=== PATIENT | female | born 1985 | race Caucasian/White ===

== ENCOUNTER 2025-01-23 18:19 | Emergency (ER) | payer OTHER, SELFPAY ==
[2025-01-23 18:22] VITALS: BP 139/92
--- NOTE | 2025-01-23 19:43 | ED.GENMED ---
History of Present Illness
General
Chief Complaint: DVT/Possible Blood Clot
Source: patient
Exam Limitations: none
Time Seen by Provider: 01/23/25 19:36
Nursing documentation reviewed up to this point in time: agreed with
History of Present Illness
History of Present Illness:
39-year-old female with no clinically significant past medical history presents for a tender lump right lower calf. She states she noticed it the past 4 days when she was shaving but today it became mildly tender. She went to urgent care was sent
here to rule out DVT. Patient states she is also had diarrhea after eating for the past 2 weeks, with mild pain in the left upper quadrant. She denies fever or chills. She denies N/V. She denies chest pain or trouble breathing.
Past History
Past History
ED Past Medical History: None
Social History
Tobacco: Non-smoker
Personal:
Review of Systems
Review of Systems
Allergies reviewed?: Yes
All Other Systems: ROS reviewed and negative except as documented in HPI and ROS
Phy Exam
Physical Exam
Physical Exam:
GENERAL: No acute distress. A&Ox3.
CONSTITUTIONAL: Afebrile.
EYES: clear, conjunctivae normal
ENMT: moist mucus membranes, Pharynx nl
RESPIRATORY: Regular respirations, nonlabored, lungs clear.
CARDIOVASCULAR: Regular rate and rhythm, no murmurs, no rubs.
GI: Soft, nontender, normal BS
MUSCULOSKELETAL: Distal left calf with dime sized area of mobile mass, mildly tender, no redness or swelling. Distal neurovascular intact. Moves with ease. Well perfused.
SKIN: Warm, dry, pink
PSYCH: Normal mood and affect. Well kept, interactive and appropriate
NEUROLOGIC: Awake, alert and oriented. No focal neurological deficits
Course
Orders/Labs/Results
Orders:
Orders
01/23/25 18:22
US Legs, Right [US Periph Venous LOWER Ext RT] Urgent
Comment:
Reason For Exam: swelling
01/23/25 19:43
Test Result ONCE
01/23/25 19:48
Complete Blood Count/With Diff Urgent
Comprehensive Metabolic Panel Urgent
HCG, Serum Qualitative Screen Urgent
Lipase Urgent
Abnormal Lab Results
01/23/25
19:48
RBC 4.06 L 10^6/uL
(4.20-5.40)
MCH 32.3 H pg
(27.0-31.0)
Alkaline Phosphatase 33 L U/L
(38-126)
01/23/25 19:48
01/23/25 19:48
Vital Signs
Initial and Last Documented VS:
Initial Vital Signs
Temp Pulse Resp BP Pulse Ox
98.0 F 89 18 139/92 100
01/23/25 18:22 01/23/25 18:22 01/23/25 18:22 01/23/25 18:22 01/23/25 18:22
Last Documented Vital Signs
Temp Pulse Resp BP Pulse Ox
98.0 F 96 18 139/92 100
01/23/25 18:22 01/23/25 21:25 01/23/25 21:25 01/23/25 18:22 01/23/25 21:25
MDM/Problems Addressed
Differential Diagnosis Includes:
DVT, fatty lipoma, cyst
Pancreatitis, constipation, diverticulitis
MDM/Problems Addressed:
39-year-old female with no clinically significant past medical history presents for a tender lump right lower calf. She states she noticed it the past 4 days when she was shaving but today it became mildly tender. She went to urgent care was sent
here to rule out DVT. Patient states she is also had diarrhea after eating for the past 2 weeks, with mild pain in the left upper quadrant. She denies fever or chills. She denies N/V. She denies chest pain or trouble breathing.
Patient is abdominal pain is intermittent and minimal over the past 2 weeks. Her abdomen is benign now, I will check her lipase since her pain is usually in the left upper quadrant
CBC normal
CMP normal
Lipase normal
hCG negative
No indication for further imaging as patient is abdomen is benign
Ultrasound showing no DVT. Patient reassured and is stable for discharge.
*Pulse Oximetry
SaO2: 100
Oxygen Mode of Delivery: Room air
Patient hypoxic: no
*Critical Care Note
Total Time (30-74mins, 75-104mins- exclusive of procedures): Not Applicable
ED Attending Note
-
Portions of this chart may have been created with voice recognition software.� Occasional wrong word or��sound alike� substitutions may have occurred due to the inherent limitations of voice recognition software.
Discharge Plan
Departure
Patient Disposition: Home (Routine Discharge)
Date of Disposition: 01/23/25
Time of Disposition: 21:19
Patient with high blood pressure during this ER visit?: No
Condition: Good
Discharge Problem:
Right calf pain, Abdominal pain
Prescriptions:
No Action
Loratadine
1 tab PO DAILY
hydrocodone-acetaminophen [Vicodin] 1 EACH tablet
1 ea PO Q6H PRN (Reason: pain) Qty: 15 0RF
Referrals:
UNKNOWN - PT DOES,NOT KNOW [Family Provider]
Activity Restrictions/Additional Instructions:
As we discussed, nothing worrisome in your workup here today. Specifically there is no deep vein clot on the ultrasound
Your blood work is all normal
Interventions
Interventions:
*Risk Screen - Suicide Last Done: 01/23/25 18:22
*General Assessment Last Done: 01/23/25 18:22
*Neglect/Abuse Screening Last Done: 01/23/25 18:22
*ED- Fall Risk Assessment Last Done: 01/23/25 20:23
*ED COVID-19 Vaccine History Last Done: 01/23/25 18:22
*Nursing Disposition Last Done: 01/23/25 21:29
ED- Cardiac Assessment Last Done: 01/23/25 19:59
ED- Pulmonary Assessment Last Done: 01/23/25 19:59
ED-Peripheral Vascular Assessment Last Done: 01/23/25 19:59
ED-Skin Assessment Last Done: 01/23/25 19:59
Discharge Date and Time
Discharge Date/Time: 01/23/25 21:30
Print Language: SETSWANA
[2025-01-23 19:57] LABS: Hematocrit 38.4 % (37.0-47.0); Hemoglobin 13.1 g/dL (12.0-16.0); Mean Corp Hgb Conc. 34.1 g/dL (33.0-37.0); Mean Corpuscular Volume 94.6 fL (81.0-99.0); Nucleated Red Blood Cells % 0 %; Platelet Count 283 10^3/uL (130-400); Red Cell Dist. Width 12.4 % (11.5-14.5)
[2025-01-23 20:19] LABS: HCG, Serum Qualitative Screen Negative
[2025-01-23 20:22] LABS: ALT (SGPT) 21 U/L (0-35); AST (SGOT) 20 U/L (14-36); Albumin 4.0 g/dl (3.5-5.0); Alkaline Phosphatase 33 U/L (38-126); Blood Urea Nitrogen 9 mg/dl (7-17); Calcium 9.1 mg/dl (8.4-10.2); Carbon Dioxide 26 mmol/L (22-30); Chloride 107 mmol/L (98-107); Glucose 94 mg/dl (70-99); Lipase 82 U/L (23-300); Potassium 3.9 mmol/L (3.5-5.1); Sodium 138 mmol/L (135-145); Total Protein 7.0 g/dl (6.3-8.2); eGFR > 60.00
== END 2025-01-23 21:30 | disposition home or self-care (01) ==
LOC: EMR 18:19
PROVIDERS: Registered Nurse; EMERGENCY PHYSICIAN Emergency Medicine
DX: M79.661 Pain in right lower leg (principal); R10.12 Left upper quadrant pain
CPT/HCPCS: 99284; 80053; 83690; 84703; 85025; 93971

== ENCOUNTER 2025-03-17 19:11 | Emergency (ER) | payer OTHER, SELFPAY ==
[2025-03-17 19:18] VITALS: BP 130/91
[2025-03-17 19:36] LABS: Urine Character Clear (Clear)
[2025-03-17 19:37] LABS: Hematocrit 40.0 % (37.0-47.0); Hemoglobin 13.6 g/dL (12.0-16.0); Mean Corp Hgb Conc. 34.0 g/dL (33.0-37.0); Mean Corpuscular Volume 92.2 fL (81.0-99.0); Nucleated Red Blood Cells % 0 %; Platelet Count 310 10^3/uL (130-400); Red Cell Dist. Width 12.2 % (11.5-14.5)
[2025-03-17 19:41] LABS: Urine Squamous Cell >30 /LPF (Few)
[2025-03-17 19:49] LABS: HCG, Serum Qualitative Screen Negative
[2025-03-17 19:54] LABS: ALT (SGPT) 15 U/L (0-35); AST (SGOT) 19 U/L (14-36); Albumin 4.4 g/dl (3.5-5.0); Alkaline Phosphatase 35 U/L (38-126); Blood Urea Nitrogen 9 mg/dl (7-17); Calcium 9.1 mg/dl (8.4-10.2); Carbon Dioxide 29 mmol/L (22-30); Chloride 107 mmol/L (98-107); Glucose 84 mg/dl (70-99); Lipase 92 U/L (23-300); Potassium 3.8 mmol/L (3.5-5.1); Sodium 140 mmol/L (135-145); Total Protein 7.3 g/dl (6.3-8.2); eGFR > 60.00
[2025-03-17 20:45] VITALS: BMI 20.9
[2025-03-17] MEDS: TORADOL 15 MG IV (22:07)
[2025-03-17] MEDS: NSS 1000 IV (22:07)
[2025-03-17 22:08] VITALS: BP 103/70
[2025-03-18 00:09] VITALS: BP 116/81
--- NOTE | 2025-03-18 00:43 | ED.GENMED ---
History of Present Illness
General
Chief Complaint: Flank Pain
Time Seen by Provider: 03/17/25 21:37
History of Present Illness
History of Present Illness:
see MDM
Past History
Past History
ED Past Medical History: None
Social History
Tobacco: Non-smoker
Personal:
Phy Exam
Physical Exam
Physical Exam:
see MDM
Course
Orders/Labs/Results
Orders:
Orders
03/17/25 19:21
IV Insert/Care/Rem.- Treatment PRN
03/17/25 19:22
Test Result ONCE
03/17/25 19:24
Complete Blood Count/With Diff Urgent
Comprehensive Metabolic Panel Urgent
HCG, Serum Qualitative Screen Urgent
Comment: Notify provider if positive test present
Lipase Urgent
Monotest Urgent
Comment: ADD ON
Urinalysis Reflex To Culture Urgent
Date Specimen was Collected: 03/17/25
Time Specimen was Collected: 19:22
Urine Microscopic Reflex Cult Urgent
Urine Culture Urgent
CRYS Source: U
Specimen Description:
Date Specimen was Collected: 03/17/25
Time Specimen was Collected: 19:22
03/17/25 21:59
0.9% Sodium Chloride 1000 ml [Nss] 1,000 ml IV BOLUS
Ketorolac [Toradol] 15 mg IV NOW STA
03/17/25 22:00
Add On- LAB Urgent
Tests Added?: mono
CT Abd/pel Without Iv Or Oral Urgent
Comment:
Reason For Exam: L back pain, micro hematuria
Abnormal Lab Results
03/17/25
19:24
MCH 31.3 H pg
(27.0-31.0)
Alkaline Phosphatase 35 L U/L
(38-126)
Ur Occult Blood Reflex 2+ A
(Negative)
Urine RBC 3-6 A /HPF
(0-2)
Urine Bacteria (Reflex) Many A
(Negative)
Urine Albumin (Reflex) 1+ A
(Neg - Trace)
03/17/25 19:24
03/17/25 19:24
Vital Signs
Initial and Last Documented VS:
Initial Vital Signs
Temp Pulse Resp BP Pulse Ox
36.8 C 85 19 130/91 99
03/17/25 19:18 03/17/25 19:18 03/17/25 19:18 03/17/25 19:18 03/17/25 19:18
Last Documented Vital Signs
Temp Pulse Resp BP Pulse Ox
36.7 C 74 15 116/81 98
03/18/25 00:09 03/18/25 00:09 03/18/25 00:09 03/18/25 00:09 03/18/25 00:09
MDM/Problems Addressed
Differential Diagnosis Includes:
see MDM
MDM/Problems Addressed:
Note:
CHIEF COMPLAINT(S)
Left-sided abdominal pain and diarrhea.
HISTORY OF PRESENT ILLNESS
The patient,39 y/o a female, presents with complaints of left-sided abdominal pain that began 2 weeks ago. The patient describes the pain as initially intense,for about 20 min and then she had BM which was very large.
sice then, pt has been having episodes of L upper abd pain to L back that is sometimes intense. she took miralax last week for a few days once a day and then had softer stools but was still getting the pain
The patient reports that the abdominal pain exacerbates after eating, with particular mention of a meal consisting of soup tonight , after which she experienced immediate sharp pain and diarrhea. She mentions that the pain has not been as severe as
initially but remains persistent and troubling, exacerbating anxiety about eating due to anticipated discomfort.
The patient has a past history of similar abdominal pain episodes over the years and underwent evaluations previously, suspecting kidney stones, which were ruled out. During the previous episodes, imaging suggested significant stool burden,
indicating possible constipation, though managed conservatively.
The patient denies current significant nausea or vomiting but mentions mild nausea. There is no noted blood in her urine or feces. She is not currently on her menstrual cycle but notes that she ceases oral contraceptive pills on Sundays and
typically resumes contraception a few days later.
no rectal bleeding
no fever
no vomiting
never saw GI
PAST MEDICAL AND SURIGICAL HISTORY
History of prior abdominal pain episodes evaluated for kidney stones, ruled out. Previous abdominal imaging indicating stool burden.
REVIEW OF SYSTEMS
- Gastrointestinal: Complains of severe constipation followed by diarrhea, associated with sharp, left-sided abdominal pain exacerbated by meals.
- Neurological: Denies significant nausea, but reports mild nausea.
- Reproductive: Not currently menstruating. Uses oral contraceptive pills.
PHYSICAL EXAM
GENERAL: Alert , in no apparent distress
EYE: pupils equal and reactive
NECK: Supple
ENT: o/p clr, mmm.
CARDIAC: Regular rate and rhythm .
LUNGS: Clear breath sounds bilaterally, no acute respiratory distress, no wheezes/rales/rhonchi
ABDOMEN: Soft, without focal tenderness, no r/g, no cvat, normal bowel sounds
NEUROLOGICAL: Alert and oriented, no focal neuro deficits
SKIN: Warm and dry, skin intact.
MUSCULOSKELETAL: No edema, well perfused. neg michelle's sign
PSYCH: Normal and appropriate interaction.
Nursing notes reviewed and vital signs reviewed.
PROBLEM LIST
Acute Problems:
- Left-sided abdominal pain
- Diarrhea
PLAN
- Conduct abdominal imaging to assess for possible underlying causes. Consideration for imaging with or without contrast.
- Monitor for ongoing symptoms and adjust bowel regimen as needed.
DIFFERENTIAL DIAGNOSIS
The Differential Diagnosis includes, in no particular order and is not limited to:
1. Abdominal bloating.
2. Gastrointestinal blockage.
3. Inflammatory bowel disease.
4. Gallstones.
5. Diverticulitis.
6. Bowel irregularities.
7. Irritable bowel syndrome.
8. Gastroenteritis.
9. Colon inflammation.
10. Constipation complications.
CARE-UPDATE
03/17/25 - 23:58
pain is improved after toradol. labs reassuring, contaminated urine.
normal wbc
ct shows L renal stone but no ureteral stones. kidney stone and ovarian cyst; other abdominal organs appear normal. Consideration for IBS diagnosis requires further testing including colonoscopy and other testing as outpatient.
A new treatment plan involves commencing pepcid twice daily for gastric irritation and bentyl for bowel-related pain as needed every eight hours. Patient advised to maintain a high fiber diet, utilize stool softeners like Metamucil or MiraLax, and
consider dietary logs to identify triggers. Referral to a event security officer for further investigation may be pursued externally due to local scheduling delays.
*Pulse Oximetry
SaO2: 98
Oxygen Mode of Delivery: Room air
Patient hypoxic: no (98)
*Critical Care Note
Total Time (30-74mins, 75-104mins- exclusive of procedures): Not Applicable
ED Attending Note
-
Portions of this chart may have been created with voice recognition software.� Occasional wrong word or��sound alike� substitutions may have occurred due to the inherent limitations of voice recognition software.
Discharge Plan
Departure
Patient Disposition: Home (Routine Discharge)
Date of Disposition: 03/18/25
Time of Disposition: 00:03
Patient with high blood pressure during this ER visit?: No
Condition: Fair
Discharge Problem:
Constipation, Abdominal pain
Instructions: Abdominal pain in adults - ED (DC), Constipation in adults - ED (DC)
Prescriptions:
New
famotidine [Pepcid] 20 mg tablet
20 mg PO BID Qty: 20 0RF
dicyclomine 20 mg tablet
20 mg PO QID PRN (Reason: ABDOMINAL PAIN) Qty: 20 0RF
No Action
Loratadine
1 tab PO DAILY
hydrocodone-acetaminophen [Vicodin] 1 EACH tablet
1 ea PO Q6H PRN (Reason: pain) Qty: 15 0RF
Referrals:
Costa Osuna MD [Active, Gastroenterology] - Follow up in 1 week
Mari Montero DO [Family Provider, Family Practice]
Activity Restrictions/Additional Instructions:
YOU MAY HAVE SOME CONSTIPATION RELATED PAIN, YOU COULD HAVE IRRITABLE BOWEL BUT YOU NEED GI TO DIAGNOSE THAT (BY EXCLUSION)
TRY METAMUCIL DAILY TO SOFTEN STOOL
YOU CAN USE MIRALAX NEEDED FOR 2-3 DAYS IN A ROW TO EMPTY YOU OUT
FOR PAIN TRY BENTYL 20 MG 3 TIMES ADAY NEEDED FOR SPASMS
TRY TO KEEP A FOOD LOG AT WHAT IS MAKING YOU HAVE MORE PAIN WHEN YOU EAT
YOU MAY NEED TO ALSO TRY PEPCID IF YOU ARE GETTING STOMACH PAIN AFTER EATING
20 MG TWICE A DAY
RETURN FOR ANY CONCERNS
Interventions
Interventions:
*Risk Screen - Suicide Last Done: 03/17/25 19:18
*General Assessment Last Done: 03/17/25 19:18
*Neglect/Abuse Screening Last Done: 03/17/25 19:18
*ED- Fall Risk Assessment Last Done: 03/17/25 20:45
*ED COVID-19 Vaccine History Last Done: 03/17/25 20:45
*ED Influenza Vaccine History Last Done: 03/17/25 20:45
*Nursing Disposition Last Done: 03/18/25 00:09
HY-Qncotm-Tnkrgbbgpt Assessment Last Done: 03/17/25 20:46
ED-Female Genitourinary Assessment Last Done: 03/17/25 20:46
Discharge Date and Time
Discharge Date/Time: 03/18/25 00:11
Print Language: HUNGARIAN
== END 2025-03-18 00:11 | disposition home or self-care (01) ==
LOC: EMR 19:11
PROVIDERS: Student in an Organized Health Care Education/Training Program; EMERGENCY PHYSICIAN Emergency Medicine; FAMILY PHYSICIAN Family Medicine
DX: K59.00 Constipation, unspecified (principal); R10.12 Left upper quadrant pain; N20.0 Calculus of kidney; N83.291 Other ovarian cyst, right side
CPT/HCPCS: 99284; 96374; 96361 ×2; 74176; 80053; 81003; 81015; 83690; 84703; 85025; 86308; 87086

== ENCOUNTER → 2025-04-23 16:12 | Outpatient (REF) | payer OTHER, SELFPAY | LOC: MRI 3T 16:12 | PROVIDERS: ATTENDING PHYSICIAN Nurse Practitioner Family | DX: L98.9 Disorder of the skin and subcutaneous tissue, unspecified (principal) | CPT/HCPCS: 73720; A9575 ==

== ENCOUNTER 2025-04-27 06:19 | Day surgery (SDC) | payer OTHER, SELFPAY | END 2025-04-27 10:10 | disposition home or self-care (01) | LOC: GI 06:19 | PROVIDERS: ATTENDING PHYSICIAN Internal Medicine | DX: R10.12 Left upper quadrant pain (principal); R19.4 Change in bowel habit; K29.50 Unspecified chronic gastritis without bleeding; K31.89 Other diseases of stomach and duodenum | CPT/HCPCS: 45380; 43239; 88305; 88342 ==